=== PATIENT | male | born 1980 | race Caucasian/White ===

== ENCOUNTER 2019-11-22 23:41 | Emergency (ER) | payer BC ==
[~2019-11-22] VITALS: Ht 190.5 cm; Wt 83.9 kg
[~2019-11-22 23:41] MED LIST: BENADRYL
[2019-11-23 00:49] LABS: Basophils # (auto) 0 10 ^3/uL (0-0.2); Basophils % (auto) 0.4 % (0.0-2.0); Eosinophils # (auto) 0.2 10 ^3/uL (0-0.8); Eosinophils % (auto) 2.5 % (0.0-7.0); Hematocrit 46.5 % (41.0-53.0); Hemoglobin 15.7 g/dL (13.5-17.5); Lymphocytes # (auto) 0.6 10 ^3/uL (0.4-5.4); Lymphocytes % (auto) 8.4 % (10.0-50.0); Mean Corpuscular Hgb Conc. 33.8 g/dL (32.0-36.0); Mean Corpuscular Volume 88.7 fL (80.0-100.0); Monocytes # (auto) 0.3 10 ^3/uL (0-1.3); Monocytes % (auto) 4.6 % (0.0-12.0); Neutrophils # (auto) 5.8 10 ^3/uL (1.6-8.6); Neutrophils % (auto) 84.1 % (37.0-80.0); Platelet Count (auto) 300 10^3/uL (140-450); Red Blood Cells 5.24 10^6/uL (4.5-5.90); Red Cell Distribution Width 15.6 % (11.8-14.3); White Blood Cell 6.9 10^3/uL (4.4-10.8)
[2019-11-23 01:01] LABS: INR 1.02 (0.9-1.15); Partial Thromboplastin Time 23.8 sec (23.64-32.05)
[2019-11-23 01:07] VITALS: BP 184/122
[2019-11-23 01:10] LABS: Albumin 3.9 g/dL (3.4-5.0); Anion Gap 5 (5-15); BUN/Creatinine Ratio 8.3; Blood Urea Nitrogen 9 mg/dL (7-18); Calcium 8.7 mg/dL (8.5-10.1); Carbon Dioxide 28 mmol/L (21-32); Chloride 100 mmol/L (98-107); GFR African American 97 mL/min; GFR Non-African American 80 mL/min; Glucose 102 mg/dL (74-106); Magnesium 2.2 mg/dL (1.6-2.6); Potassium 4.1 mmol/L (3.5-5.1); Sodium 133 mmol/L (136-145)
[2019-11-23 01:15] LABS: Acetaminophen < 2.0 ug/mL (10-30); Salicylate < 1.7 mg/dL (2.8-20.0)
[2019-11-23 01:21] LABS: Alanine Aminotransferase 23 U/L (16-61); Alkaline Phosphatase 111 U/L (45-117); Aspartate Aminotransferase 12 U/L (15-37); Bilirubin, Total 1.9 mg/dL (0.2-1.0); Total Protein 8.6 g/dL (6.4-8.2)
[2019-11-23] MEDS ORDERED: cloNIDine HCL 0.1 MG TAB ONE (01:40)
[2019-11-23] MEDS ORDERED: cloNIDine HCL 0.1 MG TAB PO ONE (01:45)
[2019-11-23] MEDS ORDERED: TETANUS-DIPTH-ACEL PERTUSSIS 0.5ML SYR Tdap IM ONE (03:00)
[2019-11-23] MEDS ORDERED: ONDANSETRON HCL 4 MG/2 ML VIAL IV ONE (03:30)
[2019-11-23] MEDS ORDERED: MORPHINE SULFATE 4 MG/ML SYR/VIAL IV ONE (03:30)
== END 2019-11-23 03:44 | disposition home or self-care (01) ==
LOC: ER 23:41 → EDBD 23:41 → ER 11-23 03:44
DX: S01.01XA Laceration without foreign body of scalp, initial encounter (principal); R06.4 Hyperventilation; J45.909 Unspecified asthma, uncomplicated; X58.XXXA Exposure to other specified factors, initial encounter; Y93.89 Activity, other specified; Y92.89 Other specified places as the place of occurrence of the external cause; Y99.8 Other external cause status
CPT/HCPCS: 36415; 70450; 71045; 71250; 72125; 74176; 80053; 80320; 80329; 82962; 83735; 84484; 85025; 85610; 85730; 90471; 93005